=== PATIENT | male | born 1990 | race Caucasian/White ===

== ENCOUNTER 2021-08-13 18:20 | Emergency (ER) | payer OTHER ==
[2021-08-13 19:07] LABS: BASOPHIL 0.4 % (0-2); EOSINOPHIL 3.5 % (0-5); HCT 46.1 % (42.0-52.0); HGB 16.3 g/dl (13.2-18.0); LYMPHOCYTE 20.9 % (15-48); MCH 31.4 pg (25.0-31.0); MCHC 35.4 g/dL (32.0-36.0); MCV 88.8 fL (78.0-100.0); MONOCYTE 8.8 % (0-12); MPV 9.4 fL (6.0-9.5); NEUTROPHIL 66.2 % (41-80); NRBC 0; PLT 248 K/uL (150-400); RBC 5.19 M/uL (4.70-6.00); RDW 11.9 % (11.5-14.0); WBC 8.1 K/uL (4.0-10.5)
[2021-08-13 19:24] LABS: BUN/CREAT RATIO (CALC) 12.4 RATIO; CREATININE 1.05 mg/dL (0.67-1.17); POTASSIUM 3.5 mmol/L (3.5-5.1)
== END 2021-08-13 20:08 | disposition home or self-care (01) ==
LOC: FER 18:20
PROVIDERS: Nurse Practitioner Family
DX: G56.22 Lesion of ulnar nerve, left upper limb (principal)
CPT/HCPCS: 36415; 80048; 85025; 85379